=== PATIENT | female | born 1975 | race Caucasian/White ===

== ENCOUNTER 2016-10-18 07:56 | Emergency (ER) | payer BC ==
[~2016-10-18] VITALS: Ht 152.4 cm; Wt 57.5 kg
[2016-10-18] MEDS ORDERED: IBUPROFEN 800MG TABLET PO ONE (09:15)
[2016-10-18 09:33] LABS: BASOPHILS % 0.3 % (0.0-2.0); EOSINOPHILS % 0.6 % (0.0-5.0); HEMATOCRIT. 32.8 % (36.0-48.0); HEMOGLOBIN. 10.8 g/dL (12.0-16.0); LYMPHOCYTES % 11.4 % (20.0-50.0); MEAN CORPUSCULAR HEMOGLOBIN 26.6 pg (28.0-32.0); MEAN CORPUSCULAR VOLUME 81.1 fL (81.0-99.0); MEAN PLATELET VOLUME 8.4 fl (7.4-10.4); MONOCYTES % 7.9 % (2.0-8.0); NEUTROPHILS % 79.8 % (40.0-76.0); PLATELET 290 x1000/uL (130-400); RED BLOOD CELL COUNT 4.05 mill/uL (4.2-5.4); RED CELL DISTRIBUTION WIDTH 14.6 % (11.6-14.6)
[2016-10-18 09:35] LABS: CHLORIDE 105 mEq/L (98-107)
[2016-10-18 09:42] LABS: CARBON DIOXIDE 27 mEq/L (21-32)
[2016-10-18 10:04] LABS: HCG SCREEN NEGATIVE
[2016-10-18 11:35] VITALS: BP 103/63
== END 2016-10-18 11:51 | disposition home or self-care (01) ==
LOC: ER 08:30
DX: R07.81 Pleurodynia (principal)
CPT/HCPCS: 36415; 71010; 80053; 83690; 84703; 85025; 99285